=== PATIENT | male | born 1990 | race Caucasian/White ===

== ENCOUNTER 2021-09-07 18:32 | Emergency (ER) | payer MEDICAID ==
[2021-09-07] MEDS ORDERED: Ketorolac 60 MG/2 ML SDV IM ONE (19:44)
[2021-09-07 19:48] LABS: CORONAVIRUS COVID-19 NAA NEGATIVE (NEGATIVE)
== END 2021-09-07 20:35 | disposition home or self-care (01) ==
LOC: JD.ED 18:32
DX: H66.002 Acute suppurative otitis media without spontaneous rupture of ear drum, left ear (principal); J40 Bronchitis, not specified as acute or chronic; F17.210 Nicotine dependence, cigarettes, uncomplicated; Z88.1 Allergy status to other antibiotic agents; Z88.5 Allergy status to narcotic agent; Z20.822 Contact with and (suspected) exposure to COVID-19
CPT/HCPCS: 0240U; 71045; 96372; 99283; J1885